=== PATIENT | female | born 1970 | race Caucasian/White ===

== ENCOUNTER 2018-09-19 12:25 | Inpatient (IN) | payer OTHER ==
[~2018-09-19] VITALS: Ht 157.5 cm; Wt 123.4 kg
[~2018-09-19 12:25] MED LIST: PROVENTIL HFA6.7 GM
[2018-09-19] MEDS ORDERED: SINGULAIR 4MG4 MG (13:49)
[2018-09-19] MEDS ORDERED: TESSALON PERLE100 M1 (13:50)
[2018-09-19] MEDS ORDERED: MUCUS RELIEF C200 MG (13:50)
--- NOTE | 2018-09-19 13:50 | NUR ---
SE REIBE PTE. FEMENINA ALERTA CONCIENTE Y OFRIENTADA CON REFERIDO DE DR. HENNA MACDONALD NEUMOLOGO REFIERE PTE. CON GASTRITIS.
--- NOTE | 2018-09-19 16:16 | NUR ---
SE RECIBE FEMINA ALERTA Y ORIENTADA POR BERE ESFERAS, EN DAVID CON BARANDAS SEGURAS Y ELEVADAS. SE YOUNG MUESTRAS DE LABORATORIOS ORDENADOS. SE CANALIZA CON AREA DE VENOPUNCION NOEMI DE EDEMA O ENROJECIMIENTO. SE ADMINISTRAN MEDICAMENTOS ORDENADOS. SE MANTIENE EN OBSERVACION POR CAMBIOS.
== END 2018-10-04 15:44 | disposition home or self-care (01) | DRG 203 ==
LOC: ER 12:25 → SURG 17:05 → SEC-K 17:05 → MEDI 09-20 14:30 → SURG 09-20 16:07
PROVIDERS: ADMIT Internal Medicine
PROC: 3E0F7GC Introduction of Other Therapeutic Substance into Respiratory Tract, Via Natural or Artificial Opening (ICD-10-PCS; principal; 2018-09-19)
PROC: 4A033R1 Measurement of Arterial Saturation, Peripheral, Percutaneous Approach (ICD-10-PCS; 2018-09-19)
PROC: 02HV33Z Insertion of Infusion Device into Superior Vena Cava, Percutaneous Approach (ICD-10-PCS; 2018-09-24)
DX: J45.41 Moderate persistent asthma with (acute) exacerbation (principal); E66.09 Other obesity due to excess calories; J20.8 Acute bronchitis due to other specified organisms; E03.8 Other specified hypothyroidism; E09.9 Drug or chemical induced diabetes mellitus without complications; Z79.4 Long term (current) use of insulin; T38.0X5A Adverse effect of glucocorticoids and synthetic analogues, initial encounter